=== PATIENT | male | born 1950 | race Asian ===

== ENCOUNTER → 2017-07-04 | Outpatient (CLI) | payer MEDICARE, OTHER ==
[~2017-07-04] MED LIST: AMOX1TAB15 PO; CARV25 PO; CLON1PAT4 TD; DOCU250C91 PO; ESOM20CA31 PO; FOLI1CAP2 PO; HYDR25TA84 PO; LOSA50TA37 PO; NIFE10 PO; PHOSLOC PO; SENN-49 PO
== END | disposition home or self-care (01) ==
LOC: RADPV 12:03
PROVIDERS: ATTEND Internal Medicine Nephrology
DX: I70.0 Atherosclerosis of aorta (principal)
CPT/HCPCS: 71020

== ENCOUNTER → 2019-08-02 | Outpatient (CLI) | payer MEDICARE, OTHER ==
[~2019-08-02] MED LIST changes: +DOCU-342 PO; -DOCU250C91 PO; -LOSA50TA37 PO; +LOSA50TA64 PO
== END | disposition home or self-care (01) ==
LOC: RADPV 12:41
PROVIDERS: ATTEND Internal Medicine Nephrology
DX: I70.0 Atherosclerosis of aorta (principal); M47.814 Spondylosis without myelopathy or radiculopathy, thoracic region; J98.11 Atelectasis; R06.02 Shortness of breath